=== PATIENT | female | born 1995 | race Caucasian/White ===

== ENCOUNTER 2017-03-16 13:51 | Emergency (ER) | payer MEDICAID ==
[2017-03-16] MEDS ORDERED: Lactated Ringers 1,000 ML IV ONE ×2 (14:08→14:12)
[2017-03-16] MEDS ORDERED: Phenergan 25 MG INJ IM ONE (14:20)
[2017-03-16] MEDS ORDERED: Phenergan 25 MG INJ ONE (14:24)
--- NOTE | 2017-03-16 14:24 | ERPHSYRPT ---
- History of Present Illness Time Seen by Provider: 03/16/17 13:57 Source: patient Patient Subjective Stated Complaint: pt co vomiting since last night,vomited 5 times today, has been able to keep water down, no cramping or baginal bleeding, pt is 28 weeks Triage Nursing Assessment: pt alert, walked in, resp easy, skin w/d pink,lips moist, Physician History: CC: vomiting Hx: 21 y/o patient of Dr Perea at 29+ 5 weeks . She had prior ultrasound. She has nausea and vomited 5 times today. No diarrhea. No abd pain. No fever or chills. Normal urination- dark. Timing/Duration: today Severity: moderate Allergies/Adverse Reactions: No Known Drug Allergies Allergy (Verified 03/16/17 14:00) Home Medications: Vits W-Ca,Fe,FA(<1Mg) [] 1 ea DAILY 03/16/17 [History] Hx Tetanus, Diphtheria Vaccination/Date Given: Yes Hx Influenza Vaccination/Date Given: No Hx Pneumococcal Vaccination/Date Given: No Immunizations Up to Date: Yes - Review of Systems Constitutional: Malaise, No Fever, No Chills Eyes: No Symptoms Ears, Nose, & Throat: No Symptoms Respiratory: No Cough, No Dyspnea Cardiac: No Chest Pain Abdominal/Gastrointestinal: Nausea, Vomiting, No Abdominal Pain, No Diarrhea Genitourinary Symptoms: , No Dysuria, No Vaginal Bleeding, No Vaginal Discharge Musculoskeletal: No Back Pain Skin: No Rash Neurological: No Headache All Other Systems: Reviewed and Negative - Past Medical History Pertinent Past Medical History: No Neurological History: No Pertinent History ENT History: No Pertinent History Cardiac History: No Pertinent History Respiratory History: No Pertinent History Endocrine Medical History: No Pertinent History Musculoskeletal History: No Pertinent History GI Medical History: No Pertinent History History: No Pertinent History Psycho-Social History: No Pertinent History Female Reproductive Disorders: No Pertinent History Other Medical History: Hearing loss- cochlear implants - Past Surgical History Past Surgical History: Yes Neuro Surgical History: No Pertinent History Cardiac: No Pertinent History Respiratory: No Pertinent History Gastrointestinal: No Pertinent History Genitourinary: No Pertinent History Musculoskeletal: No Pertinent History Female Surgical History: No Pertinent History Other Surgical History: ANKLE - Social History Smoking Status: Never smoker How long have you smoked: 4 Exposure to second hand smoke: Yes Alcohol Use: Socially Drug Use: none Patient Lives Alone: No Significant Family History: no pertinent family hx - Female History Hx Last Menstrual Period: august Hx Now: Yes Expected Date of Delivery: 03/16/17 - Nursing Vital Signs Nursing Vital Signs: Initial Vital Signs Temperature 97.7 F 03/16/17 14:01 Pulse Rate 96 H 03/16/17 14:01 Respiratory Rate 16 03/16/17 14:01 Blood Pressure 120/80 03/16/17 14:01 O2 Sat by Pulse Oximetry 99 03/16/17 14:01 Pain Scale Pain Intensity 0 - Physical Exam General Appearance: alert Eye Exam: PERRL/EOMI, No scleral icterus Ears, Nose, Throat Exam: normal ENT inspection, moist mucous membranes Neck Exam: normal inspection, non-tender, supple, No meningismus Respiratory Exam: normal breath sounds, lungs clear Cardiovascular Exam: regular rate/rhythm Gastrointestinal/Abdomen Exam: soft, other (gravid), No tenderness, No distention, No mass, No guarding Back Exam: normal inspection, No CVA tenderness Extremity Exam: normal inspection, normal range of motion, No calf tenderness, No pedal edema Neurologic Exam: alert, oriented x 3, cooperative, strawhat inspector and packer II-XII nml as tested, sensation nml, No motor deficits Skin Exam: warm, dry, No rash SpO2 Interpretation: normal SpO2: 99 Oxygen Delivery: Room Air - Course Nursing assessment & vital signs reviewed: Yes Ordered Tests: Active Orders 24 hr Category Date Time Status Clean Catch Urine Specimen STAT Care 03/16/17 14:08 Active Heart Tones-ED STAT Care 03/16/17 14:08 Active IV Insertion STAT Care 03/16/17 14:08 Active PO Popsicle STAT Care 03/16/17 14:58 Active CBC W DIFF Stat Lab 03/16/17 14:15 Completed CMP Stat Lab 03/16/17 14:15 Completed CULTURE,URINE Stat Lab 03/16/17 14:09 Ordered UA W/ MICROSCOPIC Stat Lab 03/16/17 14:09 Completed Medication Summary Generic Name Dose Route Start Last Admin Trade Name Freq PRN Reason Stop Dose Admin Sodium Chloride 1,000 mls @ 999 mls/hr 03/16/17 14:55 03/16/17 14:58 Sodium Chloride 0.9% 1000 Ml IV 03/16/17 15:55 999 mls/hr .Q1H1M STA Administration Ceftriaxone Sodium/Dextrose 1 g in 50 mls @ 100 mls/hr 03/16/17 15:14 Rocephin 1 Gm-D5w 50 Ml Bag IV 03/16/17 15:43 STAT STA Discontinued Medications Generic Name Dose Route Start Last Admin Trade Name Chris PRN Reason Stop Dose Admin Lactated Ringer's 1,000 mls @ 999 mls/hr 03/16/17 14:08 03/16/17 14:17 Lactated Ringers IV 03/16/17 15:08 999 mls/hr .Q1H1M ONE Administration Lactated Ringer's Confirm 03/16/17 14:12 Lactated Ringers Administered 03/16/17 14:13 Dose 1,000 mls @ ud IV .STK-MED ONE Sodium Chloride Confirm 03/16/17 14:57 Sodium Chloride 0.9% 1000 Ml Administered 03/16/17 14:58 Dose 1,000 mls @ ud .ROUTE .STK-MED ONE Ceftriaxone Sodium/Dextrose Confirm 03/16/17 15:16 Rocephin 1 Gm-D5w 50 Ml Bag Administered 03/16/17 15:17 Dose 1 g in 50 mls @ ud IV .STK-MED ONE Promethazine HCl 12.5 mg 03/16/17 14:20 03/16/17 14:27 Phenergan 25 Mg Inj IM 03/16/17 14:21 12.5 mg STAT ONE Administration Promethazine HCl Confirm 03/16/17 14:24 Phenergan 25 Mg Inj Administered 03/16/17 14:25 Dose 25 mg .ROUTE .STK-MED ONE Lab/Rad Data: Laboratory Result Diagrams 03/16/17 14:15 03/16/17 14:15 Laboratory Results 03/16/17 03/16/17 03/16/17 Range/Units 14:15 14:15 14:09 WBC 12.8 H (4.0-10.5) K/mm3 RBC 4.07 L (4.1-5.4) M/mm3 Hgb 11.7 L (12.0-16.0) gm/dl Hct 35.9 (35-47) % MCV 88.2 (78-100) fl MCH 28.7 (26-32) pg MCHC 32.6 (32-36) g/dl RDW 12.1 (11.5-14.0) % Plt Count 376 (150-450) K/mm3 MPV 9.4 (6-9.5) fl Gran % 72.0 H (36.0-66.0) % Lymphocytes % 15.9 L (24.0-44.0) % Monocytes % 11.7 (0.0-12.0) % Eosinophils % 0.2 (0.00-5.0) % Basophils % 0.2 (0.0-0.4) % Basophils # 0.02 (0-0.4) Sodium 135 L (136-145) mEq/L Potassium 4.0 (3.5-5.1) mEq/L Chloride 101 (98-107) mEq/L Carbon Dioxide 25.6 (21-32) mEq/L Anion Gap 12.8 (5-15) MEQ/L BUN 11 (9-20) mg/dL Creatinine 0.88 (0.55-1.30) mg/dl Estimated GFR > 60 ML/MIN Glucose 87 (70-110) MG/DL Calcium 9.4 (8.5-10.1) mg/dL Total Bilirubin 0.70 (0.2-1.0) mg/dL AST 16 (15-37) U/L ALT 16 (12-78) U/L Alkaline Phosphatase 113 (46-116) U/L Serum Total Protein 7.9 (6.4-8.2) gm/dL Albumin 3.6 (3.4-5.0) g/dL Ur Collection Type CLEAN CATCH Urine Color ABEL (YELLOW) Urine Appearance CLOUDY (CLEAR) Urine pH 5.0 (5-6) Ur Specific [place] 1.025 (1.005-1.025) Urine Protein 50 (Negative) Urine Ketones LARGE (NEGATIVE) Urine Blood 5-10 (0-5) Oscar/ul Urine Nitrite NEGATIVE (NEGATIVE) Urine Bilirubin SMALL (NEGATIVE) Urine Urobilinogen 12 (0-1) mg/dL Ur Leukocyte Esterase 2+ (NEGATIVE) Urine Microscopic RBC 5-10 (0-2) /HPF Urine Microscopic WBC 5-10 (0-5) /HPF Ur Epithelial Cells MANY (FEW) /HPF Urine Bacteria MANY (NEGATIVE) /HPF Hyaline Casts 2-5 (0-2) /LPF Urine Mucus MODERATE (NEGATIVE) /HPF Urine Culture Reflexed NO (NO) Urine Glucose NEGATIVE (NEGATIVE) mg/dL Specimen Received 03/16/17 1410 - Progress Progress Note: 03/16/17 14:23 Discussed antiemetics. She understands risks and benefits of medication during . Will give IM phenergan and IVF bolus. 03/16/17 15:18 The patient feels much better. She had addl urine which was more clear. Possible UTI on UA. Culture sent. 2 bags IVF given. Will give rocephin and keflex. Advised appt with Dr Perea this week for recheck. She has no signs or symptoms or labor. Counseled pt/family regarding: lab results, diagnosis, need for follow-up - Departure Time of Disposition: 15:19 Departure Disposition: Home Clinical Impression: Dehydration, Vomiting affecting , antepartum Qualifiers: Weeks of gestation: 29 weeks Qualified Code(s): Z3A.29 - 29 weeks gestation of UTI (urinary tract infection) Qualifiers: Urinary tract infection type: acute cystitis Hematuria presence: without hematuria Qualified Code(s): N30.00 - Acute cystitis without hematuria Condition: Stable Critical Care Time: No Referrals: STORM PEREA MD [Primary Care Provider] - Instructions: -- Discomforts and Remedies, Vomiting -- Adult Additional Instructions: Rx keflex to start tomorrow. Rx phenergan if needed for nausea. Sip frequent small amounts of fluids. Return for vaginal bleeding, cramping, contractions, abdominal pain, fever, recurrent vomiting or concerns. See Dr Perea- at 10:45. Prescriptions: Cephalexin Mh 500 mg [Keflex 500 mg] 1 cap PO QID #28 capsule Promethazine HCl 25 mg [Phenergan 25 mg] 25 mg PO Q6-8HPRN PRN #5 tablet PRN Reason: Nausea/Vomiting
[2017-03-16 14:35] LABS: BASOPHIL % 0.2 % (0.0-0.4); Eosinophil % 0.2 % (0.00-5.0); Lymphocytes % 15.9 % (24.0-44.0); Mean Cell Volume 88.2 fl (78-100); Mean Corpuscular Hemoglobin 28.7 pg (26-32); Mean Platelet Volume 9.4 fl (6-9.5); Monocytes % 11.7 % (0.0-12.0); Platelet Count 376 K/mm3 (150-450); Red Blood Count 4.07 M/mm3 (4.1-5.4); Red Cell Distribution Width 12.1 % (11.5-14.0); White Blood Count 12.8 K/mm3 (4.0-10.5)
[2017-03-16 14:48] LABS: ALBUMIN 3.6 g/dL (3.4-5.0); ALKALINE PHOSPHATASE 113 U/L (46-116); ANION GAP 12.8 MEQ/L (5-15); BLOOD UREA NITROGEN 11 mg/dL (9-20); CHLORIDE 101 mEq/L (98-107); Carbon Dioxide 25.6 mEq/L (21-32); Glucose 87 MG/DL (70-110); SGOT/AST 16 U/L (15-37); SGPT/ALT 16 U/L (12-78); SODIUM 135 mEq/L (136-145); Total Protein 7.9 gm/dL (6.4-8.2)
[2017-03-16] MEDS ORDERED: Sodium Chloride 0.9% 1000 ML 1,000 ML IV STA (14:55)
[2017-03-16] MEDS ORDERED: Sodium Chloride 0.9% 1000 ML 1,000 ML ONE (14:57)
[2017-03-16 15:10] LABS: Bilirubin SMALL (NEGATIVE); Collection Type CLEAN CATCH; Glucose NEGATIVE (NEGATIVE); Leukocyte Esterase 2+ (NEGATIVE)
[2017-03-16 15:11] LABS: ADD URINE CULTURE? NO (NO); Bacteria MANY /HPF (NEGATIVE); COMPLETE URINE MICROSCOPIC? YES; Epithelial Cells MANY /HPF (FEW); Mucus MODERATE /HPF (NEGATIVE)
[2017-03-16] MEDS ORDERED: ROCEPHIN 1 Gm-D5w 50 ml Bag** 1 G/50 ML IVPB IV STA (15:14)
[2017-03-16] MEDS ORDERED: ROCEPHIN 1 Gm-D5w 50 ml Bag** 1 G/50 ML IVPB IV ONE (15:16)
[2017-03-16 15:37] VITALS: BP 118/69; PULSE 88; O2SAT 97
== END 2017-03-16 15:37 | disposition home or self-care (01) ==
LOC: ED 13:51
DX: O23.13 Infections of bladder in pregnancy, third trimester (principal); N30.00 Acute cystitis without hematuria; E86.0 Dehydration; O21.2 Late vomiting of pregnancy; Z3A.29 29 weeks gestation of pregnancy
CPT/HCPCS: 36000; 36415; 80053; 81000; 85025; 87086; 96360; 96361; 96365; 96372; 99284; J0696; J2550

== ENCOUNTER 2017-05-08 20:29 | Observation (INO) | payer MEDICAID ==
[2017-05-08 22:48] VITALS: BP 112/74; PULSE 90
== END 2017-05-08 22:20 | disposition home or self-care (01) ==
LOC: OB 20:29 → UNDOADMOB 20:29 → UNDODISOB 22:20
PROVIDERS: ADMIT Family Medicine; ATTEND Family Medicine
DX: Z34.83 Encounter for supervision of other normal pregnancy, third trimester (principal)
CPT/HCPCS: G0378

== ENCOUNTER 2017-05-14 16:01 | Emergency (ER) | payer MEDICAID ==
--- NOTE | 2017-05-14 16:29 | ERPHSYRPT ---
- History of Present Illness Time Seen by Provider: 05/14/17 16:18 Source: patient Patient Subjective Stated Complaint: PT REPORTS HAVING A FEVER OF 97.6 ET FEELING HOT AT HOME-REPORTS COUGH-ALL OVER BODY ACHES-PT IS JORDYN 38 WKS PREGNAT Triage Nursing Assessment: PT PALE WARME T [id number] CLEAR-NO COUGH NOTED- RESP EASY ET NONLABORED Physician History: 21-year-old white female 1 para 0 estimated gestational age 38 weeks estimated date of confinement 05/27/17 Arrives with complaint of a cough sore throat felt like she had a fever but had a temperature of 97 at home symptoms since yesterday. No abdominal pain nausea nausea no vomiting. Patient states she thinks she has the flu. Past medical history hearing loss. Past surgical history patient denies. Timing/Duration: yesterday Severity: mild Modifying Factors: Improves With: nothing Associated Symptoms: cough, fever, No nausea, No vomiting, No abdominal pain, No shortness of breath, No heartburn, No diaphoresis, No syncope, No seizure, No weakness Allergies/Adverse Reactions: No Known Drug Allergies Allergy (Verified 05/14/17 16:15) Home Medications: Vits W-Ca,Fe,FA(<1Mg) [] 1 ea DAILY 03/16/17 [History] Iron 25 mg PO BID 05/08/17 [History] Hx Tetanus, Diphtheria Vaccination/Date Given: Yes Hx Influenza Vaccination/Date Given: Yes Hx Pneumococcal Vaccination/Date Given: No Immunizations Up to Date: Yes - Review of Systems Constitutional: Fever, No Chills, No Fatigue, No Lethargy, No Malaise, No Night Sweats, No Weakness, No Weight Loss Eyes: No Symptoms Ears, Nose, & Throat: Throat Pain, No Ear Pain, No Ear Discharge, No Hearing Changes, No Tinnitus, No Nose Pain, No Nose Congestion, No Nose Discharge, No Sinus Drainage, No Epistaxis, No Mouth Pain, No Mouth Swelling, No Loose Teeth, No Throat Swelling, No Hoarse, No Painful Swallowing, No Snoring, No Stridor Respiratory: Cough Cardiac: No Chest Pain, No Edema, No Syncope Abdominal/Gastrointestinal: No Abdominal Pain, No Nausea, No Vomiting, No Diarrhea Genitourinary Symptoms: No Dysuria Musculoskeletal: No Back Pain, No Neck Pain Skin: No Rash Neurological: No Dizziness, No Focal Weakness, No Sensory Changes Psychological: No Symptoms Endocrine: No Symptoms All Other Systems: Reviewed and Negative - Past Medical History Pertinent Past Medical History: No Neurological History: No Pertinent History ENT History: No Pertinent History Cardiac History: No Pertinent History Respiratory History: No Pertinent History Endocrine Medical History: No Pertinent History Musculoskeletal History: No Pertinent History GI Medical History: No Pertinent History History: No Pertinent History Psycho-Social History: No Pertinent History Female Reproductive Disorders: No Pertinent History Other Medical History: Hearing loss - Past Surgical History Past Surgical History: Yes Neuro Surgical History: No Pertinent History Cardiac: No Pertinent History Respiratory: No Pertinent History Gastrointestinal: No Pertinent History Genitourinary: No Pertinent History Musculoskeletal: No Pertinent History Female Surgical History: No Pertinent History Other Surgical History: ANKLE - Social History Smoking Status: Former smoker How long have you smoked: 3 years Exposure to second hand smoke: Yes Alcohol Use: Socially Drug Use: none Patient Lives Alone: No Significant Family History: no pertinent family hx - Female History Hx Now: Yes - Nursing Vital Signs Nursing Vital Signs: Initial Vital Signs Temperature 97.9 F 05/14/17 16:08 Pulse Rate 120 H 05/14/17 16:08 Respiratory Rate 20 05/14/17 16:08 Blood Pressure 126/81 05/14/17 16:08 O2 Sat by Pulse Oximetry 98 05/14/17 16:08 Pain Scale Pain Intensity 5 - Physical Exam General Appearance: no apparent distress, alert Eye Exam: PERRL/EOMI, eyes nml inspection Ears, Nose, Throat Exam: normal ENT inspection, TMs normal, pharynx normal, moist mucous membranes Neck Exam: normal inspection, non-tender, supple, full range of motion Respiratory Exam: normal breath sounds, lungs clear, No respiratory distress Cardiovascular Exam: regular rate/rhythm (him that he was ordered by him.Well. r ), normal heart sounds (him a him), normal peripheral pulses Gastrointestinal/Abdomen Exam: soft, normal bowel sounds, other (gravid abdomen 38 week size), No tenderness, No mass Back Exam: normal inspection, normal range of motion, No CVA tenderness, No vertebral tenderness Extremity Exam: normal inspection, normal range of motion, pelvis stable Neurologic Exam: alert, oriented x 3, cooperative, normal mood/affect, nml cerebellar function, nml station & gait, sensation nml, No motor deficits Skin Exam: normal color, warm, dry, No rash Lymphatic Exam: No adenopathy SpO2 Interpretation: normal (98%) SpO2: 98 Oxygen Delivery: Room Air - Course Nursing assessment & vital signs reviewed: Yes Ordered Tests: Active Orders 24 hr Category Date Time Status Heart Tones-ED STAT Care 05/14/17 16:22 Active CULTURE, THROAT Stat Lab 05/14/17 16:30 Received CULTURE,URINE Stat Lab 05/14/17 16:15 Received STREP SCREEN-BETA A Stat Lab 05/14/17 16:30 Completed UA W/ MICROSCOPIC Stat Lab 05/14/17 16:15 Completed Lab/Rad Data: Laboratory Results 05/14/17 05/14/17 05/14/17 Range/Units 16:30 16:30 16:15 Ur Collection Type CLEAN CATCH Urine Color YELLOW (YELLOW) Urine Appearance HAZY (CLEAR) Urine pH 7.0 (5-6) Ur Specific [place] 1.010 (1.005-1.025) Urine Protein TRACE (Negative) Urine Ketones NEGATIVE (NEGATIVE) Urine Blood TRACE NON-HEM (0-5) Oscar/ul Urine Nitrite NEGATIVE (NEGATIVE) Urine Bilirubin NEGATIVE (NEGATIVE) Urine Urobilinogen NORMAL (0-1) mg/dL Ur Leukocyte Esterase MODERATE (NEGATIVE) Urine Microscopic RBC 0-2 (0-2) /HPF Urine Microscopic WBC 10-15 (0-5) /HPF Ur Epithelial Cells MANY (FEW) /HPF Urine Bacteria MANY (NEGATIVE) /HPF Urine Mucus SLIGHT (NEGATIVE) /HPF Urine Culture Reflexed YES (NO) Urine Glucose NEGATIVE (NEGATIVE) mg/dL Influenza Type A Ag NEGATIVE (NEGATIVE) Influenza Type B Ag POSITIVE (NEGATIVE) RSV (PCR) NEGATIVE (Negative) Streptococcus Screen NEGATIVE (Negative) Specimen Received 05/14/17 1640 - Progress Progress: improved (him him. Vomited) Progress Note: 05/14/17 16:27 21-year-old white female 1 para 0 who is 38 weeks estimated gestational age with estimated date of confinement of May 27, 2017. Arrives with complaint of aches generalized and a cough symptoms since yesterday she states she feels like she had a temperature of "97". Patient has not had any abdominal pain nausea vomiting back pain. On physical examination normal grommet patient abdomen is nontender lungs are clear heart regular skin good turgor. She has been complaining of a sore throat throat really not erythematous. Abdomen is gravid nontender heart tones as checked by nurse 160 bowel sounds are positive. Patient really does not appear to be in acute distress. Will go ahead and check urinalysis, influenza, strep,. Will have OB nurse do non stress test. 05/14/17 16:53 Patient with normal nonstress test per her OB nurse. 05/14/17 17:36 I've discussed the patient's case with Dr. Graves Patient does have 10-15 white blood cells in her urine. She is also positive for influenza A. Will go ahead place patient on Keflex 500 mg 4 times a day for [address] patient on Tamiflu 75 mg orally twice a day for 5 days. Will give patient one dose of Tamiflu here. The patient's Graham Pandya will also be given a prophylactic dose of Tamiflu 75 mg daily for 10 days. He denies allergies - Departure Time of Disposition: 17:37 Departure Disposition: Home Clinical Impression: Influenza B UTI (urinary tract infection) Qualifiers: Urinary tract infection type: site unspecified Hematuria presence: without hematuria Qualified Code(s): N39.0 - Urinary tract infection, site not specified Qualifiers: Weeks of gestation: 38 weeks Qualified Code(s): Z3A.38 - 38 weeks gestation of Condition: Fair Critical Care Time: No Referrals: STORM PEREA MD [Primary Care Provider] - Additional Instructions: Return home. Keflex 500 mg orally 4 times a day for 7 days. Tamiflu 75 mg orally twice a day for 5 days. Plenty of fluids. Tylenol every 4 hours as needed for pain or temperature greater than 100.5. Follow-up with your family doctor. Return for acute distress or for severe symptoms. Your will be given prophylactic Tamiflu prescription 75 mg orally daily for 10 days. He is to follow-up with his family doctor if any problems. Return for acute distress or for severe symptoms. Prescriptions: Cephalexin Mh 500 mg [Keflex 500 mg] 500 mg PO QID #28 capsule Oseltamivir 75 mg [Tamiflu 75MG Capsule] 75 mg PO BID #10 cap
[2017-05-14 16:49] LABS: Appearance HAZY (CLEAR); Bilirubin NEGATIVE (NEGATIVE); Blood TRACE NON-HEM Ery/ul (0-5); Glucose NEGATIVE (NEGATIVE); Ketones NEGATIVE (NEGATIVE); Leukocyte Esterase MODERATE (NEGATIVE); Nitrite NEGATIVE (NEGATIVE); Protein,Urine Dip TRACE (Negative); Urobilinogen NORMAL mg/dL (0-1)
[2017-05-14 16:50] LABS: Bacteria MANY /HPF (NEGATIVE); Epithelial Cells MANY /HPF (FEW); Mucus SLIGHT /HPF (NEGATIVE)
[2017-05-14 17:06] LABS: INFLUENZA A NEGATIVE (NEGATIVE)
[2017-05-14 17:07] LABS: INFLUENZA B POSITIVE (NEGATIVE); RESPIRATORY SYNCTIAL VIRUS NEGATIVE (Negative)
[2017-05-14] MEDS ORDERED: Tamiflu 75MG Capsule PO ONE ×2 (17:42→17:50)
[2017-05-14] MEDS ORDERED: KEFLEX 500 MG PO ONE (17:42)
[2017-05-14] MEDS ORDERED: KEFLEX 500 MG ONE (17:50)
[2017-05-14 18:01] VITALS: BP 130/70; PULSE 100; O2SAT 99
== END 2017-05-14 18:00 | disposition home or self-care (01) ==
LOC: ED 16:01
DX: J10.1 Influenza due to other identified influenza virus with other respiratory manifestations (principal); O23.43 Unspecified infection of urinary tract in pregnancy, third trimester; Z3A.38 38 weeks gestation of pregnancy; Z37.0 Single live birth
CPT/HCPCS: 81000; 87070; 87086; 87430; 87631; 99283; A9270-GY

== ENCOUNTER 2017-06-01 09:50 | Inpatient (IN) | payer MEDICAID ==
[2017-06-01] MEDS ORDERED: BRETHINE 1 MG/ML SQ PRN (17:00)
[2017-06-01] MEDS ORDERED: TYLENOL EXTRA STRENGTH 500 MG PO PRN (17:00)
[2017-06-01] MEDS ORDERED: PITOCIN 30 UNITS/ LR 500 ML 500 ML IV SCH (17:00)
[2017-06-01] MEDS ORDERED: XYLOCAINE 1% HCL 20 ML MDV IJ PRN (17:00)
[2017-06-01] MEDS ORDERED: Cervidil 10 MG VAG SCH (17:00)
[2017-06-01 19:34] LABS: BASOPHIL % 0.2 % (0.0-0.4); Basophil (Absolute #) 0.02 (0-0.4); Eosinophil % 0.6 % (0.00-5.0); Eosinophil (Absolute #) 0.06 (0-0.5); Granulocyte Absolute (ANC) 6.73 (1.4-6.9); Granulocytes % 65.9 % (36.0-66.0); Hematocrit 32.7 % (35-47); Hemoglobin 10.5 gm/dl (12.0-16.0); Lymphocyte (Absolute #) 2.21 (1.0-4.6); Lymphocytes % 21.6 % (24.0-44.0); Mean Cell Volume 85.4 fl (78-100); Mean Corpuscular Hemoglobin 27.4 pg (26-32); Mean Corpuscular Hgb Concent. 32.1 g/dl (32-36); Mean Platelet Volume 9.8 fl (6-9.5); Monocyte (Absolute #) 1.19 (0.0-1.3); Monocytes % 11.7 % (0.0-12.0); Platelet Count 308 K/mm3 (150-450); Red Blood Count 3.83 M/mm3 (4.1-5.4); Red Cell Distribution Width 14.3 % (11.5-14.0); White Blood Count 10.2 K/mm3 (4.0-10.5)
[2017-06-01 20:51] LABS: Amphetamine,Urine NEG. (NEGATIVE); Barbiturate,Urine NEG. (NEGATIVE); Benzodiazepine,Urine NEG. (NEGATIVE); Cocaine,Urine NEG. (NEGATIVE); Methadone,Urine NEG. (NEGATIVE); Opiate,Urine NEG. (NEGATIVE); PCP,Urine NEG. (NEGATIVE); THC,Urine NEG. (NEGATIVE)
[2017-06-02] MEDS ORDERED: PITOCIN 30 UNITS/ LR 500 ML 500 ML IV SCH (05:00)
[2017-06-02] MEDS: Lactated Ringers 1,000 ML IV SCH ×2 (05:09→14:57)
[2017-06-02] MEDS ORDERED: Naropin 0.5% 30 ML VIAL IJ ONE (12:45)
[2017-06-02] MEDS ORDERED: Pitocin 10 UNITS/ML IV ONE (12:45)
[2017-06-02] MEDS ORDERED: Decadron 4 MG INJ IV ONE (12:45)
[2017-06-02] MEDS ORDERED: OB EPIDURAL NAROPIN/SUFENTANIL IN NACL EPIDURAL PRN (13:30)
[2017-06-02] MEDS ORDERED: Ephedrine Sulfate 50 MG/ML IV PRN (13:30)
[2017-06-02] MEDS ORDERED: Lactated Ringers 1,000 ML IV ONE ×2 (13:30→16:21)
[2017-06-02] MEDS ORDERED: Reglan 10 MG/2 ML IV SCH (16:15)
[2017-06-02] MEDS ORDERED: BICITRA 30 ML CUP PO SCH (16:15)
[2017-06-02] MEDS ORDERED: Pepcid 20 MG VIAL IV SCH (16:15)
[2017-06-02] MEDS ORDERED: CEFAZOLIN 2 GM-D5W BAG** 2 GM/50 ML ML IV SCH (16:30)
[2017-06-02 16:58] LABS: INR 0.98 (0.8-3.0)
[2017-06-02 17:00] LABS: PTT 27.6 SECONDS (25.3-37.0)
[2017-06-02 17:31] LABS: ABO TYPING B; Antibody Screen NEGATIVE (NEGATIVE); RH TYPING POSITIVE
[2017-06-02] MEDS ORDERED: MORPHINE SULFATE 2 MG INJ IV PRN (18:32)
[2017-06-02] MEDS ORDERED: HOLD NARCOTIC ANALGESICS AND SEDATIVES X24 HR MC PRN (18:32)
[2017-06-02] MEDS ORDERED: BENADRYL 50 MG/ML IV PRN (18:32)
[2017-06-02] MEDS ORDERED: Anucort-HC SUPPOSITORY PR PRN (18:32)
[2017-06-02] MEDS ORDERED: LANSINOH 40 GM TOP PRN (18:32)
[2017-06-02] MEDS ORDERED: Narcan 0.4 MG/ML IV PRN (18:32)
[2017-06-02] MEDS ORDERED: Dulcolax 10 MG SUPP PR PRN (18:32)
[2017-06-02] MEDS ORDERED: Zofran 4 MG/2 ML VIAL IV PRN (18:32)
[2017-06-02] MEDS ORDERED: Phenergan 25 MG INJ IM PRN (18:32)
[2017-06-02] MEDS ORDERED: CLARITIN 10 MG PO PRN (18:32)
[2017-06-02] MEDS ORDERED: CORTISONE 1% CREAM TP PRN (18:32)
[2017-06-02] MEDS ORDERED: Dermoplast Spray TP PRN (18:32)
[2017-06-02] MEDS ORDERED: TUCKS TP PRN (18:32)
[2017-06-02] MEDS ORDERED: DEMEROL 50 MG IV PRN (18:32)
[2017-06-02] MEDS ORDERED: Mylicon 80MG PO PRN (18:32)
[2017-06-02] MEDS ORDERED: Ambien 10 MG PO PRN (18:32)
[2017-06-02] MEDS ORDERED: TYLENOL EXTRA STRENGTH 500 MG PO PRN (18:32)
[2017-06-02] MEDS ORDERED: Dextrose 5%-Lr IV Solution 1000 ML 1,000 ML IV SCH (19:00)
[2017-06-02] MEDS ORDERED: Dextrose 5% -0.45 NaCl 1000 ML 1,000 ML IV ONE (19:23)
[2017-06-02] MEDS: PERCOCET TABLET 5/325MG PO PRN (21:20)
[2017-06-02] MEDS: Colace 100 MG PO SCH (22:25)
[2017-06-03] MEDS: PERCOCET TABLET 5/325MG PO PRN ×2 (03:47→12:45)
[2017-06-03 06:14] LABS: Hematocrit 31.3 % (35-47); Hemoglobin 10.1 gm/dl (12.0-16.0); Mean Cell Volume 84.6 fl (78-100); Mean Corpuscular Hgb Concent. 32.3 g/dl (32-36); Mean Platelet Volume 10.2 fl (6-9.5); Platelet Count 309 K/mm3 (150-450); Red Cell Distribution Width 14.5 % (11.5-14.0); White Blood Count 20.3 K/mm3 (4.0-10.5)
[2017-06-03 06:27] LABS: Mean Corpuscular Hemoglobin 27.2 pg (26-32)
--- NOTE | 2017-06-03 11:05 | OP ---
SURGERY DATE/TIME: 06/02/2016 2674 PREOPERATIVE DIAGNOSIS: Non-reassuring heart tones. POSTOPERATIVE DIAGNOSIS: Non-reassuring heart tones. PROCEDURE: Primary low transverse section. SURGEON: Nikita Alaniz M.D. ANESTHESIA: Epidural by Raul Dumont CRNA. ESTIMATED BLOOD LOSS: 400 cc. IV FLUIDS: 1,000 cc of crystalloid. URINE OUTPUT: 300 cc clear straw-colored urine. SPECIMEN: Placenta was sent for pathology. DESCRIPTION OF PROCEDURE: The patient is a 21 year-old 1, para 0 at 40 weeks and 5 days estimated gestational age. She presented for induction of labor and developed nonreassuring heart tones with late decelerations and variable decelerations with minimal variability on external monitoring. We discussed the risks, benefits and alternatives of primary section and the patient elected to proceed after discussion including risk bleeding, infection and damage to surrounding structures. The patient was taken to the operating room and had her previously placed laboring epidural dosed per anesthesia. She was prepped and draped in usual sterile fashion and after adequate level of anesthesia was assessed, a low transverse skin incision was made by knife and carried down to the subcutaneous fat to the level of the fascia. The fascia was nicked on both sides of the midline and extended in horizontal fashion using curved Tobias scissors. The superior free edge of the fascia was grasped with Janet clamps and the underlying rectus muscles were dissected free. The same was repeated inferiorly. The peritoneal cavity was then opened and entered extended in horizontal fashion bluntly. Bladder blade was then inserted and a bladder flap was created and reflected over the lower uterine segment. Horizontal uterine incision was made by knife and carried down to the level of the amniotic membranes which were carefully artificially ruptured. A viable female infant was delivered from the vertex presentation with a strong cry after bulb suctioning her oropharynx and nares. The cord was clamped and cut. She was handed off to the awaiting nursery team. The uterus was exteriorized after the placenta was removed from the uterine cavity. The uterine cavity was then sponge curetted clean to remove any remaining membranes or clots. Next, the uterine incision was closed with #1 chromic in a running locked fashion. Good hemostasis and good closure were achieved. Posterior cul-de-sac was wiped free of blood and clot and the uterus was returned to the peritoneal cavity. The lateral gutters were wiped free of blood and clot and again the uterine incision was noted to be hemostatic with good closure upon inspection. Next the fascia was closed with 0 Vicryl in a running fashion with good closure and good hemostasis. The subcutaneous fat was irrigated with warm, sterile saline and any areas of bleeding were cauterized with electrocautery. Skin layer was closed with 4-0 undyed Vicryl in a running subcuticular fashion. Steri-Strips and occlusive dressing were placed over the incision and the patient was transferred to the recovery room in excellent condition.
[2017-06-03] MEDS: Colace 100 MG PO SCH ×2 (12:45→20:57)
[2017-06-03] MEDS: FERREX 150 PO SCH (12:45)
[2017-06-03] MEDS: MOTRIN 400 MG PO PRN (17:47)
[2017-06-03] MEDS ORDERED: Nubain 10 MG/ML IV PRN (18:32)
[2017-06-03] MEDS ORDERED: DEMEROL 75 MG IM PRN (18:32)
[2017-06-03] MEDS: NORCO 5/325 MG PO PRN (20:58)
[2017-06-04] MEDS: NORCO 5/325 MG PO PRN ×4 (02:00→16:49)
--- NOTE | 2017-06-04 08:10 | PCM.DS ---
Discharge Summary Date of Admission: 06/02/17 09:50 Admitting Physician: STORM PEREA Consults: Consults on Case 06/02/17 13:31 Notify Anesthesia Provider PRN Primary Care Provider: STORM PEREA Allergies Allergies No Known Drug Allergies Allergy (Verified 06/02/17 05:03) Hospital Summary - Hospital Course Hospital Course: patient had primary at 40 5/7 wks EGA for nonreassuring heart tones. no issues postoperatively, mild lochia. ambulating and tolerating po intake. - Vitals & Intake/Output Vital Signs: Vital Signs Temperature 97.7 F 06/04/17 03:00 Pulse Rate 93 H 06/04/17 03:00 Respiratory Rate 18 06/04/17 03:00 Blood Pressure 105/67 06/04/17 03:00 O2 Sat by Pulse Oximetry 98 06/03/17 17:00 Intake & Output: Intake & Output 06/01/17 06/02/17 06/03/17 06/04/17 11:59 11:59 11:59 11:59 Intake Total 1747 900 Output Total 3000 Balance -1253 900 Weight 155 kg 70.307 kg - Lab Result Diagrams: 06/03/17 06:06 Discharge Exam General Appearance: no apparent distress, alert Respiratory Exam: normal breath sounds, lungs clear, No respiratory distress Cardiovascular Exam: regular rate/rhythm, normal heart sounds Gastrointestinal/Abdomen Exam: soft, other (incision c/d/i, fundus firm), No tenderness, No mass Extremity Exam: normal inspection, normal range of motion Final Diagnosis/Problem List - Final Discharge Diagnosis/Problem (1) delivery delivered Current Visit: Yes Status: Acute (2) (infant) Current Visit: Yes Status: Acute - Discharge Disposition: Home, Self-Care Condition: Stable Prescriptions: New Hydrocodone/Acetaminophen [[place] 5-325 Tablet] 1 each PO Q4-6HPRN PRN #20 tablet MDD 6 PRN Reason: Pain Continue Vits W-Ca,Fe,FA(<1Mg) [] 1 ea PO DAILY Iron 325 mg PO DAILY Multivitamin [Flintstones] 1 each PO DAILY Follow up with: STORM PEREA MD [Primary Care Provider] - 1 Week
[2017-06-04] MEDS: Colace 100 MG PO SCH (10:30)
[2017-06-04] MEDS: FERREX 150 PO SCH (10:30)
[2017-06-04 13:29] VITALS: O2SAT 83
[2017-06-04] MEDS: MOTRIN 400 MG PO PRN (13:57)
[2017-06-04 20:40] VITALS: BP 109/67; PULSE 74
== END 2017-06-04 17:55 | disposition home or self-care (01) | DRG 766 ==
LOC: OB 09:50 → OBSVTOIN 06-02 09:50
PROVIDERS: ADMIT Family Medicine; ATTEND Family Medicine
PROC: 10D00Z1 Extraction of Products of Conception, Low, Open Approach (ICD-10-PCS; principal; 2017-06-02)
DX: O76 Abnormality in fetal heart rate and rhythm complicating labor and delivery (principal); Z3A.40 40 weeks gestation of pregnancy; Z37.0 Single live birth
CPT/HCPCS: 01967; 01968; 36415; 64488; 76937; 76942; 80307; 85025; 85027; 85610; 85730; 86850; 86900; 86901; 87086; 88307; 94799; 99140; G0378; J0690; J1100; J2590; J2795; L0625; A9270-GY

== ENCOUNTER 2017-06-27 18:02 | Emergency (ER) | payer MEDICAID ==
[2017-06-27] MEDS ORDERED: TYLENOL 325 MG ONE (18:34)
[2017-06-27] MEDS ORDERED: TYLENOL 325 MG PO STA (18:35)
--- NOTE | 2017-06-27 18:36 | ERPHSYRPT ---
- History of Present Illness Time Seen by Provider: 06/27/17 18:20 Source: patient Exam Limitations: clinical condition Patient Subjective Stated Complaint: Pt states "I am not sure if I have strep or the flu. The left side of my throat hurts, I ache, I am tired." Triage Nursing Assessment: Pt alert and oriented X 3, skin pwd Pt ambulates without difficulty, able to speak in clear full sentences. Pt in no apparent respiratory distress. Physician History: PATIENT COMPLAINS SORETHROAT, FLU LIKE SYMPTOMS, BODY ACHES FOR PAST 2 DAYS. DENIES COUGH, DIFFICULTY SWALLOWING OR BREATHING. Timing/Duration: gradual onset Severity: moderate ENT Location: throat Prearrival Treatment: no prearrival treatment Modifying Factors: Improves With: activity Associated Symptoms: fever, sore throat (BODY ACHES), other Allergies/Adverse Reactions: No Known Drug Allergies Allergy (Verified 06/02/17 05:03) Home Medications: Vits W-Ca,Fe,FA(<1Mg) [] 1 ea PO DAILY 03/16/17 [History] Iron 325 mg PO DAILY 05/08/17 [History] Multivitamin [Flintstones] 1 each PO DAILY 06/02/17 [History] Hx Tetanus, Diphtheria Vaccination/Date Given: Yes Hx Influenza Vaccination/Date Given: Yes Hx Pneumococcal Vaccination/Date Given: No Immunizations Up to Date: Yes - Review of Systems Constitutional: Fever Eyes: No Symptoms Ears, Nose, & Throat: No Symptoms, Throat Pain Respiratory: No Symptoms, No Cough, No Dyspnea Cardiac: No Symptoms, No Chest Pain, No Edema, No Syncope Abdominal/Gastrointestinal: No Symptoms, No Abdominal Pain, No Nausea, No Vomiting, No Diarrhea Genitourinary Symptoms: No Symptoms, No Dysuria Musculoskeletal: No Symptoms, No Back Pain, No Neck Pain Skin: No Rash Neurological: No Dizziness, No Focal Weakness, No Sensory Changes Psychological: No Symptoms Endocrine: No Symptoms All Other Systems: Reviewed and Negative - Past Medical History Pertinent Past Medical History: No Neurological History: No Pertinent History ENT History: No Pertinent History Cardiac History: No Pertinent History Respiratory History: No Pertinent History Endocrine Medical History: No Pertinent History Musculoskeletal History: No Pertinent History GI Medical History: No Pertinent History History: No Pertinent History Psycho-Social History: No Pertinent History Female Reproductive Disorders: No Pertinent History Other Medical History: Hearing loss d/t prematurity, "nerves didn't develop properly" Hearing aids in both ears - Past Surgical History Past Surgical History: Yes Neuro Surgical History: No Pertinent History Cardiac: No Pertinent History Respiratory: No Pertinent History Gastrointestinal: No Pertinent History Genitourinary: No Pertinent History Musculoskeletal: No Pertinent History Female Surgical History: No Pertinent History Other Surgical History: ANKLE. c section - Social History Smoking Status: Former smoker How long have you smoked: 3 years Exposure to second hand smoke: No Alcohol Use: Socially Drug Use: none Patient Lives Alone: No Significant Family History: no pertinent family hx - Female History Hx Last Menstrual Period: 08/2016 Hx Now: No - Nursing Vital Signs Nursing Vital Signs: Initial Vital Signs Temperature 99.6 F 06/27/17 18:07 Pulse Rate 116 H 06/27/17 18:07 Respiratory Rate 18 06/27/17 18:07 Blood Pressure 126/83 06/27/17 18:07 O2 Sat by Pulse Oximetry 96 06/27/17 18:07 Pain Scale Pain Intensity 7 - Physical Exam General Appearance: no apparent distress, alert Eye Exam: bilateral eye: normal inspection, PERRL, EOMI Ear Exam: bilateral ear: auricle normal, canal normal, TM normal Nasal Exam: normal inspection Throat Exam: pharynx normal, moist mucus membranes, pharynx swelling (WITH ERYTHEMA), No tonsillar exudate Neck Exam: normal inspection, supple Cardiovascular/Respiratory Exam: normal breath sounds, regular rate/rhythm Abdominal Exam: non-tender, soft Neurologic Exam: alert, oriented x 3, sensation nml, No motor deficits Skin Exam: normal color, warm, dry SpO2 Interpretation: normal SpO2: 96 Oxygen Delivery: Room Air Ordered Tests: Active Orders 24 hr Category Date Time Status CULTURE, THROAT Stat Lab 06/27/17 Uncollected STREP SCREEN-BETA A Stat Lab 06/27/17 18:31 Completed UA W/RFX UR CULTURE Stat Lab 06/27/17 18:37 Ordered Medication Summary Discontinued Medications Generic Name Dose Route Start Last Admin Trade Name Freq PRN Reason Stop Dose Admin Acetaminophen Confirm 06/27/17 18:34 Tylenol 325 Mg Administered 06/27/17 18:35 Dose 650 mg .ROUTE .STK-MED ONE Acetaminophen 650 mg 06/27/17 18:35 06/27/17 18:40 Tylenol 325 Mg PO 06/27/17 18:36 650 mg STAT STA Administration Lab/Rad Data: Laboratory Results 06/27/17 Range/Units 18:31 Streptococcus Screen POSITIVE (Negative) - Progress Progress Note: 06/27/17 18:35 ADMINISTERED TYLENOL 650MG ORALLY. AND AMOXICILLIN 500MG ORALLY, POSITIVE STREP SCREEN 06/27/17 19:10 Counseled pt/family regarding: lab results, diagnosis, need for follow-up - Departure Time of Disposition: 19:16 Departure Disposition: Home Clinical Impression: STREP PHARYNGITIS Condition: Stable Critical Care Time: No Referrals: STORM PEREA MD [Primary Care Provider] - Additional Instructions: TYLENOL EVERY 4 HOURS NEEDED FOR FEVER OR BODY ACHES. ANTIBIOTIC AMOXICILLIN 500MG EVERY 8 HOURS FOR 10 DAYS. CONSULT YOUR PRIMARY CARE PROVIDER FOR FOLLOWUP. Prescriptions: Amoxicillin 500 mg PO TID #30 tablet
[2017-06-27] MEDS ORDERED: AMOXIL 500 MG PO ONE ×2 (19:09→19:17)
[2017-06-27] MEDS ORDERED: AMOXIL 500 MG ONE ×2 (19:11→19:21)
[2017-06-27 19:13] LABS: INFLUENZA A NEGATIVE (NEGATIVE); INFLUENZA B NEGATIVE (NEGATIVE); RESPIRATORY SYNCTIAL VIRUS NEGATIVE (Negative)
[2017-06-27 19:28] VITALS: BP 118/75; PULSE 78; O2SAT 98
== END 2017-06-27 19:29 | disposition home or self-care (01) ==
LOC: ED 18:02
DX: J02.0 Streptococcal pharyngitis (principal)
CPT/HCPCS: 87430; 87631; 99284; A9270-GY

== ENCOUNTER 2017-09-20 17:38 | Emergency (ER) | payer MEDICAID ==
[2017-09-20 18:12] VITALS: O2SAT 98
--- NOTE | 2017-09-20 18:43 | ERPHSYRPT ---
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 pt reports her tdap is current. Triage Nursing Assessment: pt is aox3, pupils perrl, afebrile, resps easy and non labored, skin pink warm dry. small laceration to bottom of left foot. no bleeding at this time. wound is well approximated. Physician History: The patient is a 21-year-old female with her complaining that she accidently stepped on a jeff nail while barefoot. The nail only penetrated a slight distance into the bottom of her left foot. her last tetanus vaccination was only a few months ago. She denies numbness or tingling. There is some bleeding at first but this has stopped. She can move her toes without difficulty. Method of Injury: incised Occurred: just prior to arrival Quality: sharpness Severity of Pain-Max: mild Severity of Pain-Current: mild Lower Extremities Pain: foot: left Modifying Factors: Improves With: nothing Associated Symptoms: none Allergies/Adverse Reactions: No Known Drug Allergies Allergy (Verified 09/20/17 18:12) Home Medications: Vits W-Ca,Fe,FA(<1Mg) [] 1 ea PO DAILY 03/16/17 [History] Iron 325 mg PO DAILY 05/08/17 [History] Multivitamin [Flintstones] 1 each PO DAILY 06/02/17 [History] Hx Tetanus, Diphtheria Vaccination/Date Given: Yes Hx Influenza Vaccination/Date Given: No Hx Pneumococcal Vaccination/Date Given: No Immunizations Up to Date: Yes - Review of Systems Constitutional: No Fever, No Chills Eyes: No Symptoms Ears, Nose, & Throat: No Symptoms Respiratory: No Cough, No Dyspnea Cardiac: No Chest Pain, No Edema, No Syncope Abdominal/Gastrointestinal: No Abdominal Pain, No Nausea, No Vomiting, No Diarrhea Genitourinary Symptoms: No Dysuria Musculoskeletal: No Back Pain, No Neck Pain Skin: No Rash Neurological: No Dizziness, No Focal Weakness, No Sensory Changes Psychological: No Symptoms Endocrine: No Symptoms Hematologic/Lymphatic: No Symptoms Immunological/Allergic: No Symptoms All Other Systems: Reviewed and Negative - Past Medical History Pertinent Past Medical History: No Neurological History: No Pertinent History ENT History: No Pertinent History Cardiac History: No Pertinent History Respiratory History: No Pertinent History Endocrine Medical History: No Pertinent History Musculoskeletal History: No Pertinent History GI Medical History: No Pertinent History History: No Pertinent History Psycho-Social History: No Pertinent History Female Reproductive Disorders: No Pertinent History Other Medical History: Hearing loss d/t prematurity, "nerves didn't develop properly" Hearing aids in both ears - Past Surgical History Past Surgical History: Yes Neuro Surgical History: No Pertinent History Cardiac: No Pertinent History Respiratory: No Pertinent History Gastrointestinal: No Pertinent History Genitourinary: No Pertinent History Musculoskeletal: No Pertinent History Female Surgical History: No Pertinent History, Section Other Surgical History: ANKLE. c section - Social History Smoking Status: Current every day smoker How long have you smoked: 3 years Exposure to second hand smoke: No Alcohol Use: Socially Drug Use: none Patient Lives Alone: No Significant Family History: no pertinent family hx - Female History Hx Last Menstrual Period: 09/13/17 Hx Now: No - Nursing Vital Signs Nursing Vital Signs: Initial Vital Signs Temperature 98.0 F 09/20/17 17:58 Pulse Rate 83 09/20/17 17:58 Respiratory Rate 18 09/20/17 17:58 Blood Pressure 117/75 09/20/17 17:58 O2 Sat by Pulse Oximetry 98 09/20/17 17:58 Pain Scale Pain Intensity 6 - Physical Exam General Appearance: alert Eyes, Ears, Nose, Throat Exam: moist mucous membranes Neck Exam: non-tender, supple Cardiovascular/Respiratory Exam: chest non-tender, normal breath sounds, regular rate/rhythm, no respiratory distress Gastrointestinal/Abdominal Exam: non-tender, guarding Back Exam: normal inspection, No vertebral tenderness Foot Exam: left foot: abrasions/lacerations, soft tissue tenderness Neuro/Tendon Exam: normal sensation, normal motor functions Mental Status Exam: alert, oriented x 3, cooperative Skin Exam: normal color, warm, dry SpO2: 98 - Progress Progress: unchanged - Departure Time of Disposition: 18:41 Departure Disposition: Home Clinical Impression: Puncture wound Condition: Stable Critical Care Time: No Referrals: STORM PEREA MD [Primary Care Provider] - Additional Instructions: You have a puncture wound to your foot. Your tetanus vaccination is up-to- date. Take Augmentin 875 one tablet 2 times a day for 10 days. Follow-up as needed. Prescriptions: Amoxicillin/Potassium Clav [Augmentin 875-125 Tablet] 875 mg PO BID #20 tablet
[2017-09-20 19:01] VITALS: BP 120/82; PULSE 82
== END 2017-09-20 19:06 | disposition home or self-care (01) ==
LOC: ED 17:38
DX: S91.332A Puncture wound without foreign body, left foot, initial encounter (principal); W45.0XXA Nail entering through skin, initial encounter
CPT/HCPCS: 99283

== ENCOUNTER 2020-12-11 22:11 | Emergency (ER) | payer MEDICAID, OTHER ==
[2020-12-11 22:29] VITALS: O2SAT 98
[2020-12-11 22:58] LABS: Appearance CLEAR (CLEAR); Bilirubin NEGATIVE (NEGATIVE); Blood NEGATIVE Ery/ul (0-5); Epithelial Cells RARE /HPF (FEW); Glucose NEGATIVE (NEGATIVE); Ketones NEGATIVE (NEGATIVE); Leukocyte Esterase NEGATIVE (NEGATIVE); Mucus SLIGHT /HPF (NEGATIVE); Nitrite NEGATIVE (NEGATIVE); Protein,Urine Dip NEGATIVE (Negative); Specific Gravity 1.021 (1.005-1.025); Urobilinogen 2 mg/dL (0-1); WBC 0-2 /HPF (0-5)
[2020-12-11 23:09] LABS: Absolute Neutrophil Ct (ANC) 6.38 (1.4-6.9); BASOPHIL % 0.4 % (0.0-0.4); Basophil (Absolute #) 0.04 (0-0.4); Eosinophil % 1.1 % (0.00-5.0); Eosinophil (Absolute #) 0.12 (0-0.5); Hematocrit 36.6 % (35-47); Hemoglobin 11.6 gm/dl (12.0-16.0); Lymphocyte (Absolute #) 3.64 (1.0-4.6); Mean Cell Volume 89.7 fl (78-100); Mean Corpuscular Hemoglobin 28.4 pg (26-32); Mean Corpuscular Hgb Concent. 31.7 g/dl (32-36); Mean Platelet Volume 9.5 fl (7.5-11.0); Monocyte (Absolute #) 1.21 (0.0-1.3); Monocytes % 10.6 % (0.0-12.0); Neutrophil % 55.9 % (36.0-66.0); Platelet Count 296 K/mm3 (150-450); Red Blood Count 4.08 M/mm3 (4.1-5.4); Red Cell Distribution Width 14.1 % (11.5-14.0); White Blood Count 11.4 K/mm3 (4.0-10.5)
[2020-12-11 23:12] LABS: Amphetamine,Urine NEGATIVE (NEGATIVE); Barbiturate,Urine NEGATIVE (NEGATIVE); Benzodiazepine,Urine NEGATIVE (NEGATIVE); Cocaine,Urine NEGATIVE (NEGATIVE); Methadone,Urine NEGATIVE (NEGATIVE); Opiate,Urine NEGATIVE (NEGATIVE); PCP,Urine NEGATIVE (NEGATIVE); THC,Urine NEGATIVE (NEGATIVE)
[2020-12-11 23:25] LABS: ACETAMINOPHEN < 10 ug/ml (10-30); ALBUMIN 4.6 g/dL (3.5-5.0); ALKALINE PHOSPHATASE 60 U/L (38-126); ANION GAP 13.8 MEQ/L (5-15); BLOOD UREA NITROGEN 16 mg/dL (7-17); CHLORIDE 104 mmol/L (98-107); Calcium 9.9 mg/dL (8.4-10.2); Carbon Dioxide 24 mmol/L (22-30); Creatinine 1 0.86 mg/dL (0.52-1.04); EST GLOMERULAR FILTRATION RATE > 60.0 ML/MIN; ETHYL ALCOHOL < 10 mg/dL (0-10); Glucose 94 mg/dL (74-106); Potassium 3.8 mmol/L (3.5-5.1); SALICYLATE < 1.0 mg/dL (2-20); SGOT/AST 34 U/L (14-36); SGPT/ALT 13 U/L (0-35); SODIUM 138 mmol/L (137-145); Total Protein 7.4 g/dL (6.3-8.2)
--- NOTE | 2020-12-11 23:55 | ERPHSYRPT ---
- History of Present Illness Time Seen by Provider: 12/11/20 22:30 Source: patient Exam Limitations: no limitations Patient Subjective Stated Complaint: states that patient had sent text meassages to another person stating she was " just looking for a reason to kill herself". also stated she had been making threats to other people. Triage Nursing Assessment: Patient arrived via Police. Patient alert but is very poor historian. Patient appears very paranoid. Patient states she does not want to hurt herself and that she hasn't threatened anyone. Patient noted to be looking around and taking to people who are not there or visible. Patient pupils constricted yet reactive. Patient does follow simple commands but takes alot of encouragement and education to stay on task. Lungs clear bilateral A/P throughout. Respiratory regular and easy and non-labored. Cap refill < 3 seconds. Patient denies SOB or chest pain. No dependent edema noted. + Radial and pedal pulses noted. Patient denies any pain or discomfort. Physician History: Patient is a 25-year-old female presents to emergency department escorted by police radio dispatcher for evaluation of suicidal threats and hallucinations and homicidal threat to kill her sister. chief environmental commitment officer produced texts that patient sent to a friend threatening to kill herself. Please officer asked patient regarding her text and patient states that voices in her head are telling her to kill herself. Patient denies ingesting toxic substances. She denies pain. Patient alert and oriented x3. However patient thinks that President Jung is still presidents. Symptoms are mild to moderate in intensity. No specific worsening or improving factors. Patient voices no other complaints or concerns at this time. Patient appears to be a poor historian and not volunteering information. Timing/Duration: today Severity of Symptoms-Max: moderate Severity of Symptoms-Current: mild Context related to: other (Auditory hallucinations.) Suicidal thoughts: gesture Associated Symptoms: hallucinating, No injury Previous symptoms: no prior history (No prior history that I am aware of at this time.) Allergies/Adverse Reactions: No Known Drug Allergies Allergy (Verified 12/11/20 22:38) Home Medications: No Reportable Medications [No Reported Medications] 12/11/20 [History] Hx Tetanus, Diphtheria Vaccination/Date Given: No Hx Influenza Vaccination/Date Given: No Hx Pneumococcal Vaccination/Date Given: No Immunizations Up to Date: Yes Travel Risk - International Travel Have you traveled outside of the country in past 3 weeks: No - Coronavirus Screening Are you exhibiting any of the following symptoms?: No Close contact with a COVID-19 positive Pt in past 14-21 Days: No - Vaccine Status Have you recieved a Covid-19 vaccination: No - Past Medical History Pertinent Past Medical History: No Neurological History: No Pertinent History ENT History: No Pertinent History Cardiac History: No Pertinent History Respiratory History: No Pertinent History Endocrine Medical History: No Pertinent History Musculoskeletal History: No Pertinent History GI Medical History: No Pertinent History History: No Pertinent History Psycho-Social History: No Pertinent History Female Reproductive Disorders: No Pertinent History Other Medical History: Hearing loss d/t prematurity, "nerves didn't develop properly" Hearing aids in both ears - Past Surgical History Past Surgical History: Yes Neuro Surgical History: No Pertinent History Cardiac: No Pertinent History Respiratory: No Pertinent History Gastrointestinal: No Pertinent History Genitourinary: No Pertinent History Musculoskeletal: No Pertinent History Female Surgical History: No Pertinent History, Section Other Surgical History: ANKLE. c section - Social History Smoking Status: Current every day smoker How long have you smoked: 10 years Exposure to second hand smoke: Yes Alcohol Use: Socially Drug Use: marijuana Patient Lives Alone: No Significant Family History: no pertinent family hx - Female History Hx Now: No - Nursing Vital Signs Nursing Vital Signs: Initial Vital Signs Temperature 98.2 F 12/11/20 22:22 Pulse Rate 78 12/11/20 22:22 Respiratory Rate 16 12/11/20 22:22 Blood Pressure 140/73 12/11/20 22:22 O2 Sat by Pulse Oximetry 98 12/11/20 22:22 Pain Scale Pain Intensity 0 - Physical Exam General Appearance: no apparent distress, other (No signs of trauma) Eyes, Ears, Nose, Throat Exam: normal ENT inspection, moist mucous membranes Neck Exam: normal inspection, non-tender, supple Respiratory Exam: normal breath sounds, lungs clear, airway intact, No respiratory distress Cardiovascular Exam: regular rate/rhythm, normal heart sounds, No edema Gastrointestinal/Abdominal Exam: soft, No tenderness, No distention Extremities Exam: normal inspection, normal range of motion, No evidence of injury, No edema Current Suicidality: denies suicide plan Neurological Exam: alert, fight manager II-XII nml as tested, oriented x 3 Appearance: appropriate appearance, denies illness, disheveled (Hands and feet are dirty.) Behavior/Eye Contact/Speech: alert & cooperative, avoids eye contact, No agitated, No intoxicated appearance Thoughts/Hallucinations: auditory hallucinations Skin Exam: normal color, warm, dry, No rash SpO2 Interpretation: normal SpO2: 98 O2 Delivery: Room Air - Course Nursing assessment & vital signs reviewed: Yes Ordered Tests: Active Orders 24 hr Category Date Time Status Underwriting Support Manager STAT Care 12/11/20 22:33 Active ACETAMINOPHEN Stat Lab 12/11/20 23:00 Completed CBC W DIFF Stat Lab 12/11/20 23:00 Completed CMP Stat Lab 12/11/20 23:00 Completed ETHYL ALCOHOL Stat Lab 12/11/20 23:00 Completed HCG,QUALITATIVE URINE Stat Lab 12/11/20 22:39 Completed SALICYLATE Stat Lab 12/11/20 23:00 Completed UA W/RFX UR CULTURE Stat Lab 12/11/20 22:39 Completed Urine Triage Profile Stat Lab 12/11/20 22:39 Completed Lab/Rad Data: Laboratory Result Diagrams 12/11/20 23:00 12/11/20 23:00 Laboratory Results 12/12/20 12/11/20 12/11/20 Range/Units 03:15 23:00 23:00 WBC 11.4 H (4.0-10.5) K/mm3 RBC 4.08 L (4.1-5.4) M/mm3 Hgb 11.6 L (12.0-16.0) gm/dl Hct 36.6 (35-47) % MCV 89.7 (78-100) fl MCH 28.4 (26-32) pg MCHC 31.7 L (32-36) g/dl RDW 14.1 H (11.5-14.0) % Plt Count 296 (150-450) K/mm3 MPV 9.5 (7.5-11.0) fl Gran % 55.9 (36.0-66.0) % Eos # (Auto) 0.12 (0-0.5) Absolute Lymphs (auto) 3.64 (1.0-4.6) Absolute Monos (auto) 1.21 (0.0-1.3) Lymphocytes % 32.0 (24.0-44.0) % Monocytes % 10.6 (0.0-12.0) % Eosinophils % 1.1 (0.00-5.0) % Basophils % 0.4 (0.0-0.4) % Absolute Granulocytes 6.38 (1.4-6.9) Basophils # 0.04 (0-0.4) Sodium 138 (137-145) mmol/L Potassium 3.8 (3.5-5.1) mmol/L Chloride 104 (98-107) mmol/L Carbon Dioxide 24 (22-30) mmol/L Anion Gap 13.8 (5-15) MEQ/L BUN 16 (7-17) mg/dL Creatinine 0.86 (0.52-1.04) mg/dL Estimated GFR > 60.0 ML/MIN Glucose 94 (74-106) mg/dL Calcium 9.9 (8.4-10.2) mg/dL Total Bilirubin 0.50 (0.2-1.3) mg/dL AST 34 (14-36) U/L ALT 13 (0-35) U/L Alkaline Phosphatase 60 (38-126) U/L Serum Total Protein 7.4 (6.3-8.2) g/dL Albumin 4.6 (3.5-5.0) g/dL Urine Color (YELLOW) Urine Appearance (CLEAR) Urine pH (5-6) Ur Specific [place] (1.005-1.025) Urine Protein (Negative) Urine Ketones (NEGATIVE) Urine Blood (0-5) Oscar/ul Urine Nitrite (NEGATIVE) Urine Bilirubin (NEGATIVE) Urine Urobilinogen (0-1) mg/dL Ur Leukocyte Esterase (NEGATIVE) Urine WBC (Auto) (0-5) /HPF Urine RBC (Auto) (0-2) /HPF U Epithel Cells (Auto) (FEW) /HPF Urine Bacteria (Auto) (NEGATIVE) /HPF Urine Mucus (Auto) (NEGATIVE) /HPF Urine Culture Reflexed (NO) Urine Glucose (NEGATIVE) mg/dL Urine HCG, Qual (Negative) Salicylates < 1.0 L (2-20) mg/dL Urine Opiates Level (NEGATIVE) Ur Methadone (NEGATIVE) Acetaminophen < 10 L (10-30) ug/ml Urine Barbiturates (NEGATIVE) Ur Phencyclidine (PCP) (NEGATIVE) Urine Amphetamine (NEGATIVE) U Benzodiazepine Level (NEGATIVE) Urine Cocaine (NEGATIVE) Urine Marijuana (THC) (NEGATIVE) Ethyl Alcohol < 10 (0-10) mg/dL SARS-CoV-2 Ag (Rapid) NEGATIVE (NEGATIVE) 12/11/20 12/11/20 12/11/20 Range/Units 22:39 22:39 22:39 WBC (4.0-10.5) K/mm3 RBC (4.1-5.4) M/mm3 Hgb (12.0-16.0) gm/dl Hct (35-47) % MCV (78-100) fl MCH (26-32) pg MCHC (32-36) g/dl RDW (11.5-14.0) % Plt Count (150-450) K/mm3 MPV (7.5-11.0) fl Gran % (36.0-66.0) % Eos # (Auto) (0-0.5) Absolute Lymphs (auto) (1.0-4.6) Absolute Monos (auto) (0.0-1.3) Lymphocytes % (24.0-44.0) % Monocytes % (0.0-12.0) % Eosinophils % (0.00-5.0) % Basophils % (0.0-0.4) % Absolute Granulocytes (1.4-6.9) Basophils # (0-0.4) Sodium (137-145) mmol/L Potassium (3.5-5.1) mmol/L Chloride (98-107) mmol/L Carbon Dioxide (22-30) mmol/L Anion Gap (5-15) MEQ/L BUN (7-17) mg/dL Creatinine (0.52-1.04) mg/dL Estimated GFR ML/MIN Glucose (74-106) mg/dL Calcium (8.4-10.2) mg/dL Total Bilirubin (0.2-1.3) mg/dL AST (14-36) U/L ALT (0-35) U/L Alkaline Phosphatase (38-126) U/L Serum Total Protein (6.3-8.2) g/dL Albumin (3.5-5.0) g/dL Urine Color YELLOW (YELLOW) Urine Appearance CLEAR (CLEAR) Urine pH 6.0 (5-6) Ur Specific [place] 1.021 (1.005-1.025) Urine Protein NEGATIVE (Negative) Urine Ketones NEGATIVE (NEGATIVE) Urine Blood NEGATIVE (0-5) Oscar/ul Urine Nitrite NEGATIVE (NEGATIVE) Urine Bilirubin NEGATIVE (NEGATIVE) Urine Urobilinogen 2 (0-1) mg/dL Ur Leukocyte Esterase NEGATIVE (NEGATIVE) Urine WBC (Auto) 0-2 (0-5) /HPF Urine RBC (Auto) NONE (0-2) /HPF U Epithel Cells (Auto) RARE (FEW) /HPF Urine Bacteria (Auto) NONE (NEGATIVE) /HPF Urine Mucus (Auto) SLIGHT (NEGATIVE) /HPF Urine Culture Reflexed NO (NO) Urine Glucose NEGATIVE (NEGATIVE) mg/dL Urine HCG, Qual NEGATIVE (Negative) Salicylates (2-20) mg/dL Urine Opiates Level NEGATIVE (NEGATIVE) Ur Methadone NEGATIVE (NEGATIVE) Acetaminophen (10-30) ug/ml Urine Barbiturates NEGATIVE (NEGATIVE) Ur Phencyclidine (PCP) NEGATIVE (NEGATIVE) Urine Amphetamine NEGATIVE (NEGATIVE) U Benzodiazepine Level NEGATIVE (NEGATIVE) Urine Cocaine NEGATIVE (NEGATIVE) Urine Marijuana (THC) NEGATIVE (NEGATIVE) Ethyl Alcohol (0-10) mg/dL SARS-CoV-2 Ag (Rapid) (NEGATIVE) - Progress Progress: improved Progress Note: 25-year-old female with homicidal and suicidal ideation. Patient sending threatening text of suicidal ideation and homicidal ideation to friends. Patient told police radio dispatcher that she is hearing voices instructing her to kill herself. Possible acute psychosis. Laboratory work-up shows no significant findings. Patient will be going to [facility]. Dr. Cardona is the admitting physician. No indication for further work-up at this time. Transfer paperwork completed. Covid test negative 12/12/20 07:07 Counseled pt/family regarding: lab results, diagnosis, need for follow-up - Departure Departure Disposition: Transfer Clinical Impression: Suicidal ideation, Auditory hallucination, Homicidal ideation Condition: Stable Critical Care Time: No Referrals: STORM PEREA MD [Primary Care Provider] -
[2020-12-12 02:26] VITALS: PULSE 68
[2020-12-12 03:46] LABS: COVID AG -BINAX NOW RAPID TEST NEGATIVE (NEGATIVE)
[2020-12-12 06:45] VITALS: BP 105/67
== END 2020-12-12 08:12 ==
LOC: ED 22:11
DX: R45.851 Suicidal ideations (principal); R44.0 Auditory hallucinations; R45.850 Homicidal ideations; F17.200 Nicotine dependence, unspecified, uncomplicated
CPT/HCPCS: 36415; 80053; 80307; 81001; 84703; 85025; 99000; 99284; G0480